=== PATIENT | male | born 1980 | race Two or more races ===

== ENCOUNTER 2020-07-14 07:52 | Emergency (ER) | payer MEDICAID, OTHER, SELFPAY ==
[~2020-07-14] VITALS: Ht 165.1 cm; Wt 54.9 kg
--- NOTE | 2020-07-14 10:56 | NUR ---
PT TO ROOM FROM LOBBY AT THIS TIME.
[2020-07-14 11:21] VITALS: BP 110/73
[2020-07-14] MEDS ORDERED: ACETAMINOPHEN 500 MG TABLET ONE (11:28)
[2020-07-14] MEDS ORDERED: ACETAMINOPHEN 500 MG TABLET PO ONE (11:30)
--- NOTE | 2020-07-14 12:04 | NUR ---
Patient given discharge instructions and they have confirmed that they understand the instructions. Patient ambulatory with steady gait.
== END 2020-07-14 12:05 | disposition home or self-care (01) ==
LOC: ED 09:20
DX: B34.9 Viral infection, unspecified (principal); Z20.828 Contact with and (suspected) exposure to other viral communicable diseases; M79.10 Myalgia, unspecified site; R11.0 Nausea
CPT/HCPCS: 36415; 87635; 99283